=== PATIENT | male | born 1995 | race African-American/Black ===

== ENCOUNTER 2017-12-02 01:20 | Emergency (ER) | payer OTHER ==
[~2017-12-02] VITALS: Ht 165.1 cm; Wt 57.3 kg
[2017-12-02 01:23] VITALS: BP 111/71; Ht 165.1 cm; Wt 57.3 kg
== END 2017-12-02 05:55 | disposition left against medical advice (07) ==
LOC: ED 01:20
DX: Z53.21 Procedure and treatment not carried out due to patient leaving prior to being seen by health care provider (principal)